=== PATIENT | female | born 1975 | race Caucasian/White ===

== ENCOUNTER 2021-11-17 11:40 | Emergency (ER) | payer OTHER, SELFPAY ==
[2021-11-17 11:54] VITALS: BP 138/109; PULSE 118; RESP 22; TEMP 35.9; O2SAT 97; BMI 38.1
--- NOTE | 2021-11-17 12:14 | CRLHL7_ITS ---
For Patients: As a result of the Cures Act, medical imaging exams and procedure reports are released immediately into your electronic medical record. You may view this report before your referring provider. If you have questions, please contact your health care provider. INDICATION: Chest pain. TECHNIQUE: Chest 1 views. COMPARISON: None. FINDINGS: Cardiovascular and mediastinum: Heart size and vasculature are normal in caliber and appearance. Lungs and pleural spaces: Lungs are clear. No sign of infiltrate. No sign of pleural effusion. No pneumothorax. Bones and soft tissues: No significant findings. IMPRESSION: No acute or significant findings. Specifically, no evidence of focal consolidation. Dictated by Parminder Onofre MD @ 11/17/2021 12:49:12 PM (Electronically Signed)
--- NOTE | 2021-11-17 12:16 | ED_ITS ---
HPI - General Adult General Chief complaint: Weakness Stated complaint: Covid + Shaky,fatigue Time Seen by Provider: 11/17/21 12:01 History of Present Illness HPI narrative: This 46-year-old female comes in reporting generalized malaise with nausea and some vomiting and diarrhea over the past week. She was diagnosed with COVID 7 days ago and states that she had a cough initially but has not been coughing recently. She does report shortness of breath. She states that she has lost 10 lb and today had some diarrhea that was somewhat bloody with mucus. She has not been on any antibiotics recently. She arrives with normal vital signs except her heart rate is increased at 118 beats per minute. Related Data Home Medications Medication Instructions Recorded Confirmed citalopram 40 mg tablet 40 mg PO ONCE 10/27/21 10/27/21 lisinopril 5 mg tablet 5 mg PO QDAY 10/27/21 10/27/21 omeprazole 20 mg capsule,delayed 20 mg PO QDAY 10/27/21 10/27/21 release oxybutynin chloride 5 mg tablet 5 mg PO QDAY 10/27/21 10/27/21 sumatriptan succinate 25 mg tablet ea PO 10/27/21 10/27/21 trazodone 50 mg tablet 50 mg PO .PRN 10/27/21 10/27/21 Previous Rx's Medication Instructions Recorded lorazepam 0.5 mg tablet (Ativan) 0.5 mg PO BID PRN anxiety #30 tabs 10/21/21 cyclobenzaprine 5 mg tablet 5 - 10 mg PO TID PRN muscle spasm 10/26/21 #60 tabs hydrocodone 5 mg-acetaminophen 325 1 tab PO QID PRN pain #30 tabs 10/27/21 mg tablet Allergies Allergy/AdvReac Type Severity Reaction Status Date / Time Bee venom Allergy Unknown swelling Uncoded 11/17/21 11:53 Review of Systems Status of ROS: Reports: 10 or more systems reviewed and unremarkable except as noted in History and below Narrative: Constitutional: No fevers, no weight gain or loss. Eyes: No discharge. No vision changes. HENT: No congestion, no sore throat, no ear pain. Cardiovascular: No chest pain, no palpitations. Respiratory: She no longer has a cough but does report some feeling of shortness of breath. Gastrointestinal: No abdominal pain. Vomiting and diarrhea as described above. Genitourinary: No dysuria, no hematuria. Musculoskeletal: Normal range of motion. Skin: No rashes, no pruritis. Neurological: No dizziness, weakness, sensory change, speech change. Endo/Heme/Allergies: No bruising or bleeding. No polydipsia. Pysch: no suicidality, no anxiety, no insomnia. All other systems reviewed and are negative. [facility] Medical History (Updated 11/17/21 @ 15:20 by Hitesh Coleman MD) Chronic sinusitis Dysmenorrhea Gastroesophageal reflux disease (2020) Generalized anxiety disorder Headache Hypertension (2020) Pain in thoracic spine Trigger finger of right thumb Surgical History (Updated 10/26/21 @ 15:35 by Bradly Ashraf) History of bilateral salpingectomy (2019) History of section (2002) History of colposcopy with cervical biopsy (2012) History of hand surgery (06/2021) History of inguinal hernia repair History of sinus surgery (06/2016) Status post carpal tunnel release Family History (Updated 10/26/21 @ 15:37 by Bradly Ashraf) Father Alcoholism Maternal Grandfather Bladder cancer Esophageal cancer Aunt Breast cancer, Onset Age: 45 Mother Type 2 diabetes mellitus Maternal Grandmother Type 2 diabetes mellitus Family/Other Type 2 diabetes mellitus Other Depression Social History (Updated 10/26/21 @ 15:38 by Bradly Ashraf) Narrative: does not have regular exercise regimen , 2 kids, [employer] health unit supervisor fam med non-smoker social drinker- 2/week Exam Narrative: Exam Narrative: Constitutional: Well-developed, well-nourished, no acute distress. HEENT: Normocephalic, atraumatic. Neck: Normal range of motion. Nontender. Supple. Heart: Regular. No murmurs. Tachycardia, rate around 110 beats per minute. Intact distal pulses. Lungs: Clear to auscultation. No chest discomfort. No wheezes, rhonchi, or rales. Abdomen: Normal bowel sounds. Nontender. No rebound tenderness. Genitalia: Deferred. Back: No midline tenderness. Normal range of motion. Extremities: Normal range of motion. No injury. Skin: Intact. No rash. Warm. No erythema or pallor. Neurologic: No altered sensation. No weakness. Alert and oriented. Psychiatric: No suicidality. No anxiety or depression. No insomnia. Nursing notes and vitals signs are reviewed. Const: Vital Signs, click to edit/add: Vital Signs - 24 hr 11/17/21 11:54 Temperature 96.7 F L Pulse Rate [Pulse Oximeter] 118 H Respiratory Rate 22 Blood Pressure [Ri ght Upper Arm] 138/109 H Pulse Oximetry 97 Oxygen Delivery Me thod Room Air Course Vital Signs Vital signs: Initial Vital Signs Temperature 96.7 F L 11/17/21 11:54 Temperature Source Temporal Artery Scan 11/17/21 11:54 Pulse Rate 118 H 11/17/21 11:54 Pulse Rhythm 11/17/21 11:54 Respiratory Rate 22 11/17/21 11:54 Blood Pressure 138/109 H 11/17/21 11:54 Blood Pressure Mean 118 11/17/21 11:54 Pulse Oximetry 97 11/17/21 11:54 Oxygen Delivery Method 11/17/21 11:54 Vital Signs Temperature 96.7 F L 11/17/21 11:54 Pulse Rate 118 H 11/17/21 11:54 Respiratory Rate 22 11/17/21 11:54 Blood Pressure 138/109 H 11/17/21 11:54 Pulse Oximetry 97 11/17/21 11:54 Oxygen Delivery Method 11/17/21 11:54 Temperature 96.7 F L 11/17/21 11:54 Pulse Rate 118 H 11/17/21 11:54 Respiratory Rate 22 11/17/21 11:54 Blood Pressure 138/109 H 11/17/21 11:54 Pulse Oximetry 97 11/17/21 11:54 Oxygen Delivery Method 11/17/21 11:54 Medical Decision Making [facility] Narrative Medical decision making narrative: This patient comes in with various symptoms as described above since being diagnosed with COVID about a week ago. An IV was established where she received a L of normal saline in a dose of Zofran. This brought some relief to her symptoms. Her lab results returned with reassuring findings. In particular her white count is normal and her chest x-ray also shows no sign of acute pulmonary disease. She did have some bloody mucus diarrhea today and test was ordered for Clostridium difficile. She has not yet provided a sample for this. She feels this is unlikely and that may be the case as her white count is normal and she is afebrile. She wishes to return home and states that she feels better with the fluid resuscitation. Lab Data Labs: Lab Results 11/17/21 11/17/21 11/17/21 Range/Units 12:17 12:17 12:30 WBC 8.86 (4.50-11.00) K/uL RBC 4.39 (4.00-5.20) m/uL Hgb 14.3 (12.0-16.0) gm/dL Hct 39.4 (33.0-51.0) % MCV 90 (80-100) fL MCH 33 (26-34) pg MCHC 36 (32-36) gm/dL RDW Coeff of Edgar 11.4 L (11.5-15.5) % Plt Count 340 (140-440) K/uL Neut % (Auto) 76.6 H (42.0-72.0) % Lymph % (Auto) 18.5 L (20-44) % [place] % (Auto) 4.4 (0.0-11.0) % Eos % (Auto) 0.3 (0.0-7.0) % Baso % (Auto) 0.1 (0.0-3.0) % Neut # (Auto) 6.80 (1.7-7.0) K/uL Lymph # (Auto) 1.60 (0.90-2.90) K/uL [place] # (Auto) 0.40 (0.00-0.90) K/UL Eos # (Auto) 0.03 (0.00-0.50) K/uL Baso # (Auto) 0.01 (0.00-0.30) K/uL Abs Immat Gran (auto) 0.01 (0.00-0.30) K/uL D-Dimer Quant (PE/DVT) 0.40 (0.00-0.50) ug/ml Sodium 138 (135-149) mmol/L Potassium 4.0 (3.6-5.1) mmol/L Chloride 108 (96-114) mmol/L Carbon Dioxide 21 (20-32) mmol/L BUN 11 (5-24) mg/dL Creatinine 0.6 (0.5-1.5) mg/dL Estimated Creat Clear 85.94 Estimated GFR 113 ml/min Glucose 134 H (60-115) mg/dL Calcium 9.3 (8.4-10.6) mg/dL C-Reactive Protein < 0.5 L (0.5-1.0) mg/dL Urine Color (Yellow) Urine Appearance (Clear) Urine pH (5.0-8.5) Ur Specific [place] (1.000-1.030) Urine Protein (Negative) Urine Glucose (UA) (Negative) Urine Ketones (Negative) Urine Blood (Negative) Urine Nitrite (Negative) Urine Bilirubin (Negative) Urine Urobilinogen (0.2-1.0) Ur Leukocyte Esterase (Negative) Urine RBC (0-2) Urine WBC (0-5) Urine WBC Clumps (None) Ur Squamous Epith Cells (None-Few) Urine Bacteria (None) 11/17/21 Range/Units 14:01 WBC (4.50-11.00) K/uL RBC (4.00-5.20) m/uL Hgb (12.0-16.0) gm/dL Hct (33.0-51.0) % MCV (80-100) fL MCH (26-34) pg MCHC (32-36) gm/dL RDW Coeff of Edgar (11.5-15.5) % Plt Count (140-440) K/uL Neut % (Auto) (42.0-72.0) % Lymph % (Auto) (20-44) % [place] % (Auto) (0.0-11.0) % Eos % (Auto) (0.0-7.0) % Baso % (Auto) (0.0-3.0) % Neut # (Auto) (1.7-7.0) K/uL Lymph # (Auto) (0.90-2.90) K/uL [place] # (Auto) (0.00-0.90) K/UL Eos # (Auto) (0.00-0.50) K/uL Baso # (Auto) (0.00-0.30) K/uL Abs Immat Gran (auto) (0.00-0.30) K/uL D-Dimer Quant (PE/DVT) (0.00-0.50) ug/ml Sodium (135-149) mmol/L Potassium (3.6-5.1) mmol/L Chloride (96-114) mmol/L Carbon Dioxide (20-32) mmol/L BUN (5-24) mg/dL Creatinine (0.5-1.5) mg/dL Estimated Creat Clear Estimated GFR ml/min Glucose (60-115) mg/dL Calcium (8.4-10.6) mg/dL C-Reactive Protein (0.5-1.0) mg/dL Urine Color Yellow (Yellow) Urine Appearance Slightly Cloudy A (Clear) Urine pH 7.0 (5.0-8.5) Ur Specific [place] 1.015 (1.000-1.030) Urine Protein Negative (Negative) Urine Glucose (UA) Negative (Negative) Urine Ketones Negative (Negative) Urine Blood Trace-lysed A (Negative) Urine Nitrite Negative (Negative) Urine Bilirubin Negative (Negative) Urine Urobilinogen 0.2 (0.2-1.0) Ur Leukocyte Esterase Negative (Negative) Urine RBC 0-2 (0-2) Urine WBC 0-2 (0-5) Urine WBC Clumps None (None) Ur Squamous Epith Cells Few (None-Few) Urine Bacteria Few A (None) Imaging Data Chest x-ray: Radiologist's impression: No acute or significant findings. Specifically, no evidence of focal consolidation. ECG Data Attestation: I personally reviewed and interpreted this ECG as follows: Interpretation: Sinus tachycardia, rate 107 beats per minute. There are no specific ST or T- wave abnormalities. Discharge Plan Discharge Clinical Impression: COVID-19, Fluid volume depletion Patient Disposition: Home, Self-Care Condition: Stable Additional Instructions: Increase diet as tolerated. Take plenty of fluids. Follow up with MD as needed or return if worsening. Prescriptions: No Action lisinopril 5 mg tablet 5 mg PO QDAY Label Comments: TAKE 1 TABLET BY MOUTH ONCE DAILY. citalopram 40 mg tablet 40 mg PO ONCE omeprazole 20 mg capsule,delayed release(DR/EC) 20 mg PO QDAY Label Comments: TAKE 1 CAPSULE BY MOUTH ONCE DAILY. sumatriptan succinate 25 mg tablet PO Label Comments: ONE TAB AT ONSET OF HEADACHE, MAY REPEAT EVERY 2 HOURS NEEDED, MAX 200 MG/24 HRS oxybutynin chloride 5 mg tablet 5 mg PO QDAY Label Comments: TAKE 1/2 TAB BY MOUTH TWICE DAILY trazodone 50 mg tablet 50 mg PO .PRN Label Comments: TAKE 1-2 TABLETS BY MOUTH AT BEDTIME NEEDED hydrocodone-acetaminophen 5-325 mg tablet 1 tab PO QID PRN (Reason: pain) Qty: 30 0RF lorazepam [Ativan] 0.5 mg tablet 0.5 mg PO BID PRN (Reason: anxiety) Qty: 30 0RF cyclobenzaprine 5 mg tablet 5 - 10 mg PO TID PRN (Reason: muscle spasm) Qty: 60 0RF Follow Up/Referrals: Lin Castellano MD [Primary Care Provider] - Stand Alone Forms: [facility] Inst[facility]
[2021-11-17] MEDS: 0.9 % SODIUM CHLORIDE 1000 ml 1,000 ML IV (12:37)
[2021-11-17 13:02] LABS: Chloride* 108 mmol/L (96-114); Sodium* 138 mmol/L (135-149)
[2021-11-17 13:03] LABS: Basophils Absolute Auto 0.01 K/uL (0.00-0.30); Basophils Percent Auto 0.1 % (0.0-3.0); Eosinophils Absolute Auto 0.03 K/uL (0.00-0.50); Eosinophils Percent Auto 0.3 % (0.0-7.0); Hematocrit 39.4 % (33.0-51.0); Hemoglobin* 14.3 gm/dL (12.0-16.0); Immature Granulocytes Abs Auto 0.01 K/uL (0.00-0.30); Lymphocytes Percent Auto 18.5 % (20-44); Mean Corpuscular HGB Conc 36 gm/dL (32-36); Mean Corpuscular Hemoglobin 33 pg (26-34); Mean Corpuscular Volume 90 fL (80-100); Monocytes Percent Auto 4.4 % (0.0-11.0); Neutrophils Percent Auto 76.6 % (42.0-72.0); Platelet Count* 340 K/uL (140-440); RDW Coefficient of Variation % 11.4 % (11.5-15.5); Red Blood Count 4.39 m/uL (4.00-5.20); Slide Review Reflex No; White Blood Count* 8.86 K/uL (4.50-11.00)
[2021-11-17 13:05] LABS: Creatinine* 0.6 mg/dL (0.5-1.5); Est. Creatinine Clearance* 85.94; Estimated Glomerular Filt Rate 113 ml/min
[2021-11-17 13:06] LABS: Blood Urea Nitrogen* 11 mg/dL (5-24); Calcium* 9.3 mg/dL (8.4-10.6); Carbon Dioxide* 21 mmol/L (20-32); Glucose* 134 mg/dL (60-115)
[2021-11-17 13:18] LABS: C Reactive Protein* < 0.5 mg/dL (0.5-1.0)
[2021-11-17 14:15] LABS: Appearance Urine Slightly Cloudy (Clear); Bilirubin Urine Negative (Negative); Blood Urine Trace-lysed (Negative); Color Urine Yellow (Yellow); Glucose Urine Negative (Negative); Ketones Urine Negative (Negative); Leukocyte Esterase Urine Negative (Negative); Nitrite Urine Negative (Negative); Protein Urine Negative (Negative); Specific Gravity Urine 1.015 (1.000-1.030); Urobilinogen Urine 0.2 (0.2-1.0)
[2021-11-17 14:31] LABS: Bacteria Urine Few; RBC Urine 0-2 (0-2); Squamous Epithelial Cell Urine Few (None-Few); WBC Urine 0-2 (0-5)
== END 2021-11-17 15:33 | disposition home or self-care (01) ==
PROVIDERS: Emergency Provider Emergency Medicine Emergency Medical Services; PCP Family Medicine
DX: U07.1 COVID-19 (principal); E86.9 Volume depletion, unspecified
CPT/HCPCS: 36415; 71045; 80048; 81001; 85025; 85379; 86140; 87086; 87493; 93005; 96360; 99284; J7030

== ENCOUNTER 2022-01-12 09:04 | Outpatient (CLI) | payer OTHER, SELFPAY ==
--- OUTSIDE RECORDS SUMMARY | 2022-01-12 09:09 | XMS_ITS | Clinical Summary ---
:1975 Author Organization [facility] [place] [address] Care Team Providers Name Role Phone Pcp, No Primary Care Provider Unavailable Allergies No known active allergies Medications Medication Sig Dispensed Refills Start Date End Date Status citalopram (CELEXA) 20 Takes 30 mg 0 05/23/2012 Active mg tablet every day meloxicam 15 mg Take 1 tablet by 30 tablet 2 02/09/2017 Active tabletIndications: DDD mouth once (degenerative disc daily. disease), thoracic gabapentin (NEURONTIN) Take 1 capsule 30 capsule 3 02/09/2017 Active 300 mg by mouth at capsuleIndications: bedtime. Displacement of thoracic intervertebral disc without myelopathy Active Problems Problem Noted Date T 7-8 disk protrusion 05/23/2012 DDD (degenerative disc disease), thoracic 05/23/2012 Social History Tobacco Use Types Packs/Day Years Used Date Never Smoker Smokeless Tobacco: Never Used Tobacco Cessation: Counseling Given: Yes Alcohol Use Standard Drinks/Week Comments Not Asked 0 (1 standard drink = 0.6 oz pure alcoho l) Sex Assigned at Date Recorded Not on file Obstetrics History Last Filed Vital Signs Vital Sign Reading Time Taken Comments Blood Pressure 115/82 02/09/2017 8:21 AM WAFER FABRICATION TECHNICIAN tower Pulse 79 02/09/2017 8:21 AM WAFER FABRICATION TECHNICIAN Temperature 37.4 ??C (99.4 ??F) 02/09/2017 8:21 AM WAFER FABRICATION TECHNICIAN Respiratory Rate - - Oxygen Saturation 97% 02/09/2017 8:21 AM WAFER FABRICATION TECHNICIAN Inhaled Oxygen Concentration - - Weight 86 kg (189 lb 9.6 oz) 02/09/2017 8:21 AM WAFER FABRICATION TECHNICIAN Height 154.3 cm (5' 0.73) 02/09/2017 8:21 AM WAFER FABRICATION TECHNICIAN Body Mass Index 36.15 02/09/2017 8:21 AM WAFER FABRICATION TECHNICIAN Plan of Treatment Health Maintenance Due Date Last Done Comments COVID-19 vaccine series (#1) 05/16/1978 Tdap 1988 Depression screening for age 12+ 1989 Hepatitis C screening for age 0811/14/1995 18-79 Tetanus booster 1997 BMI (ht and wt on same day) for 02/09/2018 02/09/2017 age 18+ Pap test for age 21-65 09/04/2020 09/04/2017, 09/04/2017, 01/27/2014, Additional history exists Influenza for age 9-49 11/25/2021 Results Not on filefrom Last 3 Months Insurance Payer Benefit Plan / Subscriber ID Effective Dates Phone Addre ss Type Group PREFERRED ONE PREFERRED ONE [id number] 2013-Present [address] [place] [address] Care Teams Mobile Application Engineer Relationship Specialty Start Date End Date Pcp, No PCP - General 05/03/12 .
--- NOTE | 2022-01-12 09:15 | CRLHL7_ITS ---
For Patients: As a result of the Century Cures Act, medical imaging exams and procedure reports are released immediately into your electronic medical record. You may view this report before your referring provider. If you have questions, please contact your health care provider. BILATERAL SCREENING MAMMOGRAM WITH COMPUTER-AIDED DETECTION AND TOMOSYNTHESIS, 01/12/2022 TECHNIQUE: CC and MLO views were obtained. These mammographic images have been obtained using full-field digital technique. These mammographic images were interpreted with the benefit of computer-aided detection. Breast tomosynthesis was used in this interpretation. COMPARISON FILM: 01/11/21, 01/10/20, 01/08/19. FINDINGS: There are scattered areas of fibroglandular density. IMPRESSION: There is no radiographic evidence for malignancy. ASSESSMENT: BI-RADS Category 1: Negative RECOMMENDATION: Routine screening mammogram in 1 year. A lay language report of this examination will be provided to the patient. ANTONY CONROY M.D. Diagnostic Radiologist [email or web address] Transcribed: 2:[address]/Dictated by: Antony Conroy MD @ 01/12/2022 11:35:00 AM (Electronically Signed)
== END 2022-01-12 09:05 | disposition home or self-care (01) ==
PROVIDERS: PCP Family Medicine; Visit Provider Family Medicine
DX: Z12.31 Encounter for screening mammogram for malignant neoplasm of breast (principal)
CPT/HCPCS: 77063; 77067

== ENCOUNTER 2022-09-28 06:26 | Day surgery (SDC) | payer OTHER, SELFPAY ==
[2022-09-28] VITALS (13 sets, daily range): BP systolic 117–132; BP diastolic 70–85; PULSE 69–75; RESP 12–16; TEMP 36.2–36.4; O2SAT 99–100
[2022-09-28] MEDS: lidocaine HCL 2 % MULTIDOSE 20 ML VIAL 12 ML INJECTION (07:22)
[2022-09-28] MEDS: BUPIVACAINE 0.5% 30 ML 8 ML INJECTION (07:22)
--- NOTE | 2022-09-28 07:44 | SUR.OPER ---
PATIENT QUESTIONS ANSWERED SATISFACTORILY PREOPERATIVELY.? PATIENT BROUGHT TO OR #3 PER WHEELCHAIR.? Patient positioned supine on OR #3 bed.? The perioperative?team supported both arms bilaterally on arm boards. Final approval of positioning by surgeon.? PRIOR TO LOCAL INJECTION, TIME OUT PREFORMED AT 07:22.
--- NOTE | 2022-09-28 08:05 | P.ORPRC_ITS ---
Procedure Note Date of procedure: 09/28/22 Procedure: Preop diagnosis: Left upper extremity carpal tunnel syndrome, left thumb mass Postop diagnosis: Left upper extremity carpal tunnel syndrome, left thumb mass Procedure: Left upper extremity carpal tunnel release, left thumb mass excisional biopsy Anesthesia: Local Surgeon: Roque Moyer MD shipping and receiving assistant: Ying Andersen PA-C EBL: 5 mL Complications: None Specimens: None Drains: None Indications: The patient has a history of left upper extremity carpal tunnel syndrome symptoms. Despite appropriate nonoperative management consisting of nighttime bracing and occupational therapy they continue to have symptoms. Operative intervention was recommended. The risks, benefits alternatives and expected outcomes were discussed in detail. These included but were not limited to: Infection, bleeding, injury to blood vessel or nerve, venous thromboembolism. All questions were answered to their satisfaction. The patient was placed supine on the operating room table. Local anesthesia was established with 0.5% Marcaine without epinephrine and 2% lidocaine without epinephrine at the base of the palm. Additionally, a digital block was placed at the base of the thumb. The hand was prepped and draped in usual sterile fashion. The limb was elevated the forearm pneumatic tourniquet was inflated to 250 mm of mercury. A longitudinal incision was made centered over the radial border of the ring finger at the base of the palm. Subcutaneous dissection was sharply taken through the palmar fascia and the palmaris brevis to the transverse carpal ligament. The ligament was divided in line with the incision. Proximal and distal dissection was carried with tenotomy and Metzenbaum scissors for a wide decompression of the carpal tunnel. Attention was then turned to the thumb mass. A longitudinal incision was made over the dorsum of the proximal phalanx, just radial to midline. Subcutaneous dissection was taken tenotomy scissors to the mass, which is a ganglion cyst. It has eroded through the extensor mechanism. It was entered with the 15 blade and clear synovial fluid was obtained. It was followed down to the IP joint. The cyst wall was excised with the scalpel. The rongeur was used to debride a normal cuff of capsule around the stalk. The rent in the extensor mechanism was closed with a 4-0 Vicryl in an interrupted [id number] fashion. The tourniquet was released, bleeding was controlled with direct pressure. The wounds were closed with a 3-0 nylon. A bulky dry dressing was applied, sponge and needle counts were correct x 2. The patient tolerated the procedure well, there were no apparent complications. They were sent to same day surgery in satisfactory condition. Plan: Use of the hand as tolerates. Discontinue the intraoperative dressing on postoperative day 3 and may get the wound wet as tolerates. Follow up in the office in 2 weeks for a wound check and suture removal.
[2022-09-28] MEDS: ETHYL CHLORIDE 1 APPLICATION 1 APPLIC TOPICAL (08:08)
== END 2022-09-28 08:34 | disposition home or self-care (01) ==
PROVIDERS: PCP Family Medicine; Visit Provider Orthopaedic Surgery
PROC: (CPT 64721; principal; 2022-09-28 07:30)
DX: G56.02 Carpal tunnel syndrome, left upper limb (principal); M67.442 Ganglion, left hand
CPT/HCPCS: 64721; 26160; J0665

== ENCOUNTER 2023-01-10 14:58 | Outpatient (CLI) | payer OTHER, SELFPAY ==
--- NOTE | 2023-01-10 15:00 | CRLHL7_ITS ---
For Patients: As a result of the Century Cures Act, medical imaging exams and procedure reports are released immediately into your electronic medical record. You may view this report before your referring provider. If you have questions, please contact your health care provider. DIGITAL SCREENING MAMMOGRAM USING TOMOSYNTHESIS AND COMPUTER-AIDED DETECTION INDICATION: 47-year-old asymptomatic female. Screening study. Intentional weight loss of 40 pounds. No personal history of breast cancer biopsies. TECHNIQUE: CC and MLO views were obtained. This digital study was evaluated assistance of computer-aided detection. Digital breast tomosynthesis utilized in interpretation. COMPARISON: 01/12/2022. FINDINGS: Breast Composition: The breasts are heterogeneously dense, which may obscure small masses. The breasts are smaller than before likely related to interval weight loss. In the central LEFT breast middle depth on the MLO view is a questionable small nodule not seen on the CC view. This may be artifactual. However, recommend a repeat LEFT breast mammogram with a true ML view and a spot view in the MLO projection. Ultrasound may be required. Nothing for malignancy on the RIGHT. IMPRESSION: 1. Interval decrease in the size of the breasts with an interval increase in the breast density likely related to weight loss. 2. Questionable nodule middle depth LEFT breast measuring less than 1 cm for which additional imaging and possibly ultrasound are recommended. BI-RADS Category 0: Incomplete: Need Additional Imaging Evaluation and/or Prior Mammograms for Comparison [facility] will contact the patient for follow-up. A lay language report of this examination will be provided to the patient. Dictated by: Guillaume Cisneros MD @01/11/2023 9:58:16 AM /Dictated by: Guillaume Cisneros MD @ 01/11/2023 9:58:00 AM (Electronically Signed)
== END 2023-01-10 14:59 | disposition home or self-care (01) ==
LOC: MAMMO 14:58
PROVIDERS: PCP Family Medicine; Visit Provider Family Medicine
DX: Z12.31 Encounter for screening mammogram for malignant neoplasm of breast (principal); N63.20 Unspecified lump in the left breast, unspecified quadrant
CPT/HCPCS: 77063; 77067

== ENCOUNTER 2023-01-18 10:25 | Outpatient (CLI) | payer OTHER, SELFPAY ==
--- NOTE | 2023-01-18 10:45 | CRLHL7_ITS ---
For Patients: As a result of the Cures Act, medical imaging exams and procedure reports are released immediately into your electronic medical record. You may view this report before your referring provider. If you have questions, please contact your health care provider. DIGITAL DIAGNOSTIC LEFT MAMMOGRAM USING TOMOSYNTHESIS AND COMPUTER-AIDED DETECTION CLINICAL HISTORY: LEFT breast mass/asymmetry. COMPARISON: 01/10/2023. TECHNIQUE: Digital LEFT mammogram in four projections. Tomosynthesis and CAD utilized. BREAST COMPOSITION: The breast is heterogeneously dense, which may obscure small masses. FINDINGS: 3D spot compression MLO, true lateral/MLO/CC 3D LEFT breast mammogram images submitted. Decreased conspicuity of previously noted asymmetric density. No architectural distortion. Benign calcifications. No adenopathy. IMPRESSION: Normal breast tissue. No evidence of malignancy. RECOMMENDATIONS: Annual BILATERAL screening mammography. Results and recommendations discussed with the patient. BI-RADS Category 1: Negative A lay language report of this examination will be provided to the patient. Dictated by Antony Bonner MD @ 01/18/2023 1:00:48 PM jj/Dictated by: Antony Bonner MD @ 01/18/2023 1:00:00 PM (Electronically Signed)
== END 2023-01-18 10:26 | disposition home or self-care (01) ==
LOC: MAMMO 10:26
PROVIDERS: PCP Family Medicine; Visit Provider Family Medicine
DX: N63.20 Unspecified lump in the left breast, unspecified quadrant (principal); R92.8 Other abnormal and inconclusive findings on diagnostic imaging of breast
CPT/HCPCS: 77065; G0279

== ENCOUNTER 2023-05-02 07:46 | Outpatient (CLI) | payer OTHER, SELFPAY ==
--- OUTSIDE RECORDS SUMMARY | 2023-05-03 10:56 | XMS_ITS | Clinical Summary ---
Author Name Unknown Organization [email or web address] [facility] & [facility] Address [place], [place] [address] Care Team Providers Care Transmission Mechanic Name Role Phone Pcp, No Primary Care Provider Unavailabl e Allergies No known active allergies Medications Medication Sig Dispensed Refills Start Date End Date Status citalopram (CELEXA) 20 mg tablet Takes 30 mg every day 0 05/23/2012 Active meloxicam 15 mg tabletIndications:DDD (degenerative disc disease), thoracic Take 1 tablet by mouth once daily. 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 30 capsule 3 02/09/2017 Active Active Problems Problem Noted Date Diagnosed Date T 7-8 disk protrusion 05/23/2012 DDD (degenerative disc disease), thoracic 2012 Social History Tobacco Use Types Packs/Day Years Used Date Smoking Tobacco: Never Smokeless Tobacco: Never Tobacco Cessation:Counseling Given: Yes Alcohol Use Standard Drinks/Week Comments Not Asked 0 (1 standard drink = 0.6 oz pur e alcohol) Sex and Gender Information Value Date Recorded Sex Assigned at Not on file Gender Identity Not on file Sexual Orientation Not on file Obstetrics History Last Filed Vital Signs Vital Sign Reading Time Taken Comments Blood Pressure 115/82 02/09/2017 8:21 AM CONSTRUCTION COORDINATOR tow er Pulse 79 02/09/2017 8:21 AM CONSTRUCTION COORDINATOR Temperature 37.4 ??C (99.4 ??F) 02/09/2017 8:21 AM CS T Respiratory Rate - - Oxygen Saturation 97% 02/09/2017 8:21 AM CONSTRUCTION COORDINATOR Inhaled Oxygen Concentration - - Weight 86 kg (189 lb 9.6 oz) 02/09/2017 8:21 AM CONSTRUCTION COORDINATOR Height 154.3 cm (5' 0.73) 02/09/2017 8:21 AM CS T Body Mass Index 36.15 02/09/2017 8:21 AM CONSTRUCTION COORDINATOR Plan of Treatment Health Maintenance Due Date Last Done Comments COVID-19 vaccine series (#1) 05/16/1978 Tdap 1988 Depression screening for age 12+ 1989 HIV for age 15-65 1992 Hepatitis C screening for age 18-79 11/14/1995 Tetanus booster 1997 BMI (ht and wt on same day) for age 18+ 02/09/2018 02/09/2017 Pap test for age 21-65 09/04/2020 8, 09/04/2017, 01/27/2014, Additional history exists Colonoscopy through age 75 2022 Lipids for age 45-75 2022 Mammogram for age 45-75 2022 Influenza for age 9-49 11/25/2022 Pneumococcal series for age 6-64 Aged Out No longer eligible based on patient's age to complete this topic Care Teams Transmission Mechanic Relationship Specialty Start Date End Date Pcp, No . PCP - General 05/03/12
== END 2023-05-02 07:47 | disposition home or self-care (01) ==
LOC: NFLDREF 05-03 10:53
PROVIDERS: PCP Family Medicine; Referring Provider Family Medicine; Visit Provider Family Medicine
DX: I10 Essential (primary) hypertension (principal); Z13.220 Encounter for screening for lipoid disorders; Z13.21 Encounter for screening for nutritional disorder
CPT/HCPCS: 80053; 80061; 82306

== ENCOUNTER 2023-12-27 10:22 | Outpatient (CLI) | payer OTHER, SELFPAY ==
--- OUTSIDE RECORDS SUMMARY | 2023-12-27 10:39 | XMS_ITS | Clinical Summary ---
Author Organization [email or web address] [facility] & [facility] Address [place], [place] [address] Care Team Providers Care Judicial Assistant Name Role Phone Pcp, No Primary Care [...] Comments Blood Pressure 115/82 02/09/2017 8:21 AM SIPHON OPERATOR tow er Pulse 79 02/09/2017 8:21 AM SIPHON OPERATOR Temperature 37.4 ??C (99.4 ??F) 02/09/2017 8:21 AM CS T Respiratory Rate - - Oxygen Saturation 97% 02/09/2017 8:21 AM SIPHON OPERATOR Inhaled Oxygen Concentration - - Weight 86 kg (189 lb 9.6 oz) 02/09/2017 8:21 AM SIPHON OPERATOR Height 154.3 cm (5' 0.73) 02/09/2017 8:21 AM CS T Body Mass Index 36.15 02/09/2017 8:21 AM SIPHON OPERATOR Plan of Treatment Health Maintenance Due Date Last Done Comments Tdap 1988 Depression screening for age 12+ 1989 HIV for age 15-65 1992 Hepatitis C screening for age 18-79 11/14/1995 Tetanus booster 1997 BMI (ht and wt on same day) for age 18+ 02/09/2018 02/09/2017 Colonoscopy through age 75 2022 Lipids for age 45-75 2022 Mammogram for age 45-75 2022 COVID-19 vaccine series ( season) 2023 Influenza for age 9-49 11/26/2023 Pap test for age 21-65 05/04/2026 , 05/04/2023, 09/04/2017, Additional history exists Pneumococcal series for age 6-64 Aged Out No longer eligible based on patient's age to complete this topic Procedures Procedure Name Priority Date/Time Associated Diagnosis Comments HPV HIGH RISK Routine 05/04/2023 1:30 PM SIPHON OPERATOR from Last 3 Months or Most Recently Relevant to Health Maintenance Results * HPV HIGH RISK (05/04/2023 1:30 PM SIPHON OPERATOR) TYPE 16 Negative Negative 05/09/2023 1:48 PM SIPHON OPERATOR [facility] TYPE 18 Negative Negative 05/09/2023 1:48 PM SIPHON OPERATOR [facility] OTHER HIGH RISK TYPES Negative Negative 05/09/2023 1:48 PM SIPHON OPERATOR [facility] Other (Cervical/Vagina l) 05/04/2023 1:30 PM SIPHON OPERATOR 05/08/2023 8:05 AM SIPHON OPERATOR Narrative [facility] - 05/09/2023 1:48 PM SIPHON OPERATOR HPV types 16, 18, 31, 33, 35, 39, 45, 51, 52, 56, 58, 59, 66 and 68 DNA were undetectable or below the pre-set threshold. Methodology: Yossi Aftab 4800 HPV Test Lin Castellano MD MICROBIOLOGY [facility] [address] [place] [address], [place] from Last 3 Months or Most Recently Relevant to Health Maintenance Care Teams Judicial Assistant Relationship Specialty Start Date End Date Pcp, No . PCP - General 05/03/12
== END 2023-12-27 10:23 | disposition home or self-care (01) ==
PROVIDERS: PCP Family Medicine; Visit Provider Family Medicine
DX: I10 Essential (primary) hypertension (principal); R55 Syncope and collapse; F41.9 Anxiety disorder, unspecified; E66.9 Obesity, unspecified
CPT/HCPCS: 80053; 84443

== ENCOUNTER 2024-01-12 07:56 | Outpatient (CLI) | payer OTHER, SELFPAY ==
--- OUTSIDE RECORDS SUMMARY | 2024-01-12 07:59 | XMS_ITS | Clinical Summary ---
Author Organization [facility] Address [place], [place] [address] Care Team Providers Care Grocery Sacker Name Role Phone Pcp, No Primary Care [...] Comments Blood Pressure 115/82 02/09/2017 8:21 AM SPRAYER AUTOMATIC SPRAY MACHINE tow er Pulse 79 02/09/2017 8:21 AM SPRAYER AUTOMATIC SPRAY MACHINE Temperature 37.4 ??C (99.4 ??F) 02/09/2017 8:21 AM CS T Respiratory Rate - - Oxygen Saturation 97% 02/09/2017 8:21 AM SPRAYER AUTOMATIC SPRAY MACHINE Inhaled Oxygen Concentration - - Weight 86 kg (189 lb 9.6 oz) 02/09/2017 8:21 AM SPRAYER AUTOMATIC SPRAY MACHINE Height 154.3 cm (5' 0.73) 02/09/2017 8:21 AM CS T Body Mass Index 36.15 02/09/2017 8:21 AM SPRAYER AUTOMATIC SPRAY MACHINE Plan of Treatment Health Maintenance Due Date [...] HPV HIGH RISK Routine 05/04/2023 1:30 PM SPRAYER AUTOMATIC SPRAY MACHINE from Last 3 Months or Most Recently Relevant to Health Maintenance Results * HPV HIGH RISK (05/04/2023 1:30 PM SPRAYER AUTOMATIC SPRAY MACHINE) TYPE 16 Negative Negative 05/09/2023 1:48 PM SPRAYER AUTOMATIC SPRAY MACHINE [facility] TYPE 18 Negative Negative 05/09/2023 1:48 PM SPRAYER AUTOMATIC SPRAY MACHINE [facility] OTHER HIGH RISK TYPES Negative Negative 05/09/2023 1:48 PM SPRAYER AUTOMATIC SPRAY MACHINE [facility] Other (Cervical/Vagina l) 05/04/2023 1:30 PM SPRAYER AUTOMATIC SPRAY MACHINE 05/08/2023 8:05 AM SPRAYER AUTOMATIC SPRAY MACHINE Narrative [facility] - 05/09/2023 1:48 PM SPRAYER AUTOMATIC SPRAY MACHINE HPV types 16, 18, 31, 33, 35, 39, 45, 51, 52, 56, 58, 59, 66 and 68 DNA were undetectable or below the pre-set threshold. Methodology: Yossi Aftab 4800 HPV Test Lin Castellano MD MICROBIOLOGY [facility] [address] [place] [address], [place] from Last 3 Months or Most Recently Relevant to Health Maintenance Care Teams Grocery Sacker Relationship Specialty Start Date End Date Pcp, No . PCP - General 05/03/12
--- NOTE | 2024-01-12 08:15 | CRLHL7_ITS ---
For Patients: As a result of the Cures Act, medical imaging exams and procedure reports are released immediately into your electronic medical record. You may view this report before your referring provider. If you have questions, please contact your health care provider. BILATERAL SCREENING MAMMOGRAM WITH COMPUTER-AIDED DETECTION AND TOMOSYNTHESIS TECHNIQUE: CC and MLO views were obtained. These mammographic images have been obtained using full-field digital technique. These mammographic images were interpreted with the benefit of computer-aided detection. Breast Tomosynthesis was used in this interpretation. COMPARISON FILM: 01/10/23, 01/12/22, 01/11/21. FINDINGS: The breasts are heterogeneously dense, which may obscure small masses. The breasts are extremely dense, which lowers the sensitivity of mammography. IMPRESSION: There is no radiographic evidence for malignancy. ASSESSMENT: BI-RADS Category 1: Negative RECOMMENDATION: Routine screening mammogram in 1 year. A lay language report of this examination will be provided to the patient. Antony Bonner M.D. Diagnostic Radiologist [email or web address] SP/Dictated by: Antony Bonner MD @ 01/16/2024 11:50:00 AM (Electronically Signed)
== END 2024-01-12 07:57 | disposition home or self-care (01) ==
LOC: MAMMO 07:57
PROVIDERS: PCP Family Medicine; Visit Provider Family Medicine
DX: Z12.31 Encounter for screening mammogram for malignant neoplasm of breast (principal); R92.333 Mammographic heterogeneous density, bilateral breasts
CPT/HCPCS: 77063; 77067

== ENCOUNTER 2024-04-25 09:08 | Outpatient (CLI) | payer OTHER, SELFPAY | END 2024-04-25 09:09 | disposition home or self-care (01) | PROVIDERS: PCP Family Medicine; Visit Provider Family Medicine | DX: M54.12 Radiculopathy, cervical region (principal); M50.323 Other cervical disc degeneration at C6-C7 level; M50.223 Other cervical disc displacement at C6-C7 level | CPT/HCPCS: 72141 ==

== ENCOUNTER 2024-07-02 07:30 | Outpatient (RCR) | payer OTHER, SELFPAY | END 2024-10-30 23:59 | disposition home or self-care (01) | PROVIDERS: PCP Family Medicine; Visit Provider Family Medicine | DX: M54.12 Radiculopathy, cervical region (principal); Z51.89 Encounter for other specified aftercare | CPT/HCPCS: 97110; 97140; 97162; 97530 ==

== ENCOUNTER 2024-09-10 09:08 | Outpatient (CLI) | payer OTHER, SELFPAY | END 2024-09-10 09:09 | disposition home or self-care (01) | LOC: NFLDREF 09:09 | PROVIDERS: PCP Family Medicine; Visit Provider Family Medicine | DX: I10 Essential (primary) hypertension (principal); Z01.818 Encounter for other preprocedural examination | CPT/HCPCS: 80048 ==

== ENCOUNTER 2024-12-31 07:45 | Outpatient (CLI) | payer OTHER, SELFPAY | END 2024-12-31 07:46 | disposition home or self-care (01) | LOC: NFLDREF 01-04 04:30 | PROVIDERS: PCP Family Medicine; Referring Provider Family Medicine; Visit Provider Family Medicine | DX: I10 Essential (primary) hypertension (principal) | CPT/HCPCS: 80053; 80061 ==

== ENCOUNTER 2025-01-15 09:36 | Outpatient (CLI) | payer OTHER, SELFPAY | END 2025-01-15 09:37 | disposition home or self-care (01) | LOC: NFLDREF 01-18 16:19 | PROVIDERS: PCP Family Medicine; Referring Provider Family Medicine; Visit Provider Family Medicine | DX: I10 Essential (primary) hypertension (principal) | CPT/HCPCS: 80048 ==

== ENCOUNTER 2025-01-17 13:48 | Outpatient (CLI) | payer OTHER, SELFPAY ==
--- NOTE | 2025-01-17 14:40 | CRLHL7_ITS ---
For Patients: As a result of the Century Cures Act, medical imaging exams and procedure reports are released immediately into your electronic medical record. You may view this report before your referring provider. If you have questions, please contact your health care provider. INDICATION: BILATERAL SCREENING MAMMOGRAM, ASYMPTOMATIC 89 Y/O FEMALE COMPARISON: 01/12/2024, 01/10/2023, 01/12/2022 TECHNIQUE: Digital mammogram in CC and MLO projections including computer-aided detection (CAD) and tomosynthesis. BREAST COMPOSITION: There are scattered areas of fibroglandular density. FINDINGS: No suspicious findings. ASSESSMENT: BI-RADS 1 Negative RECOMMENDATION: Annual screening mammogram. A lay language report of this examination will be provided to the patient. Dictated by: Antony Bonner MD @ 01/20/2025 08:57:07 (Electronically Signed)
== END 2025-01-17 13:49 | disposition home or self-care (01) ==
LOC: MAMMO 13:48
PROVIDERS: PCP Family Medicine; Visit Provider Family Medicine
DX: Z12.31 Encounter for screening mammogram for malignant neoplasm of breast (principal)
CPT/HCPCS: 77063; 77067

== ENCOUNTER 2025-02-13 07:09 | Outpatient (CLI) | payer OTHER, SELFPAY ==
--- NOTE | 2025-02-13 08:40 | P.ANES_ITS ---
Anesthesia Charges Start Date/Time Anesthesia Start Date: 02/13/25 Anesthesia Start Time: 08:05 Stop Date/Time Anesthesia Stop Date: 02/13/25 Anesthesia Stop Time: 08:39 Coding CPT Codes CPT Codes: NINI LWR INTST SCR COLSC - 85516 ([id number]) P2 - PATIENT W/MILD SYST DISEASE, QK - CONTAINER SHOP WELDER 2-4 CNCRNT ANES PROC, QX - LINING INSERTER SVC W/ MD MED DIRECTION
--- NOTE | 2025-02-13 08:40 | W.ANESCHARGE ---
Anesthesia Charges Start Date/Time Anesthesia Start Date: 02/13/25 Anesthesia Start Time: 08:05 Stop Date/Time Anesthesia Stop Date: 02/13/25 Anesthesia Stop Time: 08:39 Coding CPT Codes CPT Codes: NINI LWR INTST SCR COLSC - 92154 ([id number]) P2 - PATIENT W/MILD SYST DISEASE, QK - DRIP MOLDER 2-4 CNCRNT ANES PROC, QX - MOUNTER AUTOMATIC SVC W/ MD MED DIRECTION
--- NOTE | 2025-02-13 10:22 | P.ANES_ITS ---
Anesthesia Charges Start Date/Time Anesthesia Start Date: 02/13/25 Anesthesia Start Time: 08:05 Stop Date/Time Anesthesia Stop Date: 02/13/25 Anesthesia Stop Time: 08:39 Coding CPT Codes CPT Codes: NINI LWR INTST SCR COLSC - 76744 ([id number]) P2 - PATIENT W/MILD SYST DISEASE, QK - SENIOR WIND TURBINE TECHNICIAN 2-4 CNCRNT ANES PROC, QX - BALANCE STAFF INSPECTOR SVC W/ MD MED DIRECTION
--- NOTE | 2025-02-13 10:22 | W.ANESCHARGE ---
Anesthesia Charges Start Date/Time Anesthesia Start Date: 02/13/25 Anesthesia Start Time: 08:05 Stop Date/Time Anesthesia Stop Date: 02/13/25 Anesthesia Stop Time: 08:39 Coding CPT Codes CPT Codes: NINI LWR INTST SCR COLSC - 57103 ([id number]) P2 - PATIENT W/MILD SYST DISEASE, QK - MOTORIZED SQUAD COMMANDING OFFICER 2-4 CNCRNT ANES PROC, QX - FURNACE INSTALLER SVC W/ MD MED DIRECTION
== END 2025-02-13 07:10 | disposition home or self-care (01) ==
LOC: OP CLINIC 07:10
PROVIDERS: PCP Family Medicine; Visit Provider Surgery
DX: Z12.11 Encounter for screening for malignant neoplasm of colon (principal)
CPT/HCPCS: 00812; 45378; J2704